=== PATIENT | male | born 1990 | race Caucasian/White ===

== ENCOUNTER 2016-08-27 21:11 | Emergency (ER) | payer MEDICAID, OTHER ==
[~2016-08-27] VITALS: Ht 180.3 cm; Wt 114.1 kg
[~2016-08-27 21:11] MED LIST: CYCL-36 PO; IBUP800 PO
[2016-08-27 21:35] VITALS: BP 121/89; PULSE 113; RESP 20; TEMP 102.4; O2SAT 98
[2016-08-27 22:45] VITALS: TEMP 101.2
[2016-08-27] MEDS ORDERED: IBUP-232 PO (22:49)
[2016-08-27] MEDS ORDERED: ACETAMINOPHEN 500 MG CPLT PO ONE (23:15)
[2016-08-27] MEDS ORDERED: CLINDAMYCIN INJ 900 MG in SODIUM CHLORIDE 0.9% INJ 100 ML IV ONE (23:15)
[2016-08-27] MEDS ORDERED: LIDOCAINE HCL 1% PF 30 ML VIAL INFIL ONE (23:15)
[2016-08-27] MEDS ORDERED: KETOROLAC TROMETHAMINE 30 MG/ML (IVP) VIAL IV PUSH ONE (23:15)
[2016-08-27 23:16] LABS: AUTOMATED NEUTROPHIL # 8.7 TH/MM3 (1.8-7.7); BASOPHIL % 0.2 % (0.0-2.0); EOSINOPHIL % 0.1 % (0.0-4.0); HEMATOCRIT 41.5 % (39.0-51.0); HEMO FLAGS DIFF FINAL; LYMPH % 15.1 % (9.0-44.0); LYMPHOCYTE # 1.8 TH/MM3 (1.0-4.8); MEAN CELL VOLUME 84.3 FL (80.0-100.0); MEAN CORPUSCULAR HEMOGLOBIN 29.2 PG (27.0-34.0); MEAN CORPUSCULAR HGB CONC 34.7 % (32.0-36.0); MONO % 9.9 % (0.0-8.0); NEUT % 74.7 % (16.0-70.0); PLATELET COUNT 288 TH/MM3 (150-450); RED BLOOD COUNT 4.92 MIL/MM3 (4.50-5.90); RED CELL DISTRIBUTION WIDTH 12.1 % (11.6-17.2); WHITE BLOOD COUNT 11.7 TH/MM3 (4.0-11.0)
[2016-08-27 23:23] LABS: POTASSIUM 3.6 MEQ/L (3.5-5.1)
--- NOTE | 2016-08-27 23:50 | PD ---
HPI Chief Complaint: Skin Problem Time Seen by Provider: 23:03 Travel History International Travel<30 days: No Contact w/Intl Traveler<30days: No Traveled to known affect area: No History of Present Illness HPI 26-year-old male presents to the emergency department for left knee redness and possible infection 3 weeks. Patient has been taking Tylenol and ibuprofen for symptom relief. Patient's had multiple similar lesions to the left lower extremity. Patient states that area to the anterior portion of his knee has been persistent and worsening but no ascending erythema and no groin lymphadenopathy. Patient has had fever. Patient is not diabetic. Patient denies any known trauma. Patient rates pain as moderate to severe. Pain is located at the site of redness to the anterior knee but denies any joint pain with range of motion. PFSH Past Medical History Narrative Medical Negative past history negative surgical history alcohol use nursing notes reviewed Medical History: Denies Significant Hx Diminished Hearing: No Immunizations Current: Yes Tetanus Vaccination: Unknown Influenza Vaccination: No Past Surgical History Surgical History: No Previous Surgery Social History Alcohol Use: Yes (VERY RARE) Tobacco Use: No Substance Use: No Allergies-Medications (Allergen,Severity, Reaction): Coded Allergies: Amoxil (Verified Allergy, Severe, n/v, 08/27/16) Reported Meds & Prescriptions Reported Meds & Active Scripts Active Clindamycin (Clindamycin HCl) 150 Mg Cap 300 Mg PO Q6H 7 Days Bactrim DS (Sulfamethoxazole-Trimethoprim) 800-160 Mg Tab 1 Tab PO BID Bactroban Topical (Mupirocin) 2 % Cream 1 Applic TOPICAL TID 7 Days Reported Ibuprofen 600 Mg Tab 600 Mg PO Q6H PRN Review of Systems Except as stated in HPI: all other systems reviewed are Neg General / Constitutional: No: Chills HENT: No: Congestion Cardiovascular: No: Chest Pain or Discomfort Respiratory: No: Shortness of Breath Gastrointestinal: No: Nausea, Vomiting, Abdominal Pain Genitourinary: No: Flank Pain Musculoskeletal: Positive: Pain, No: Myalgias, Limited ROM Skin: Positive Rash (anterior left knee), Positive Other, No Lumps Neurologic: No: Weakness Psychiatric: No: Anxiety Hematologic/Lymphatic: No: Easy Bruising Physical Exam Narrative GENERAL: Well-developed well-nourished male in no acute distress no respiratory distress. SKIN: Warm and dry. HEAD: Normocephalic. EYES: No scleral icterus. No injection or drainage. NECK: Supple, trachea midline. No JVD or lymphadenopathy. CARDIOVASCULAR: Regular rate and rhythm without murmurs, gallops, or rubs. RESPIRATORY: Breath sounds equal bilaterally. No accessory muscle use. GASTROINTESTINAL: Abdomen soft, non-tender, nondistended. MUSCULOSKELETAL: No cyanosis, or edema. Attention left lower extremity anterior lateral aspect of the left knee prepatellar area induration erythema increased warmth with central pustular lesion nonfluctuant with 3 smaller areas to the proximal lower leg in various stages of healing no ascending erythema no left groin lymphadenopathy distally dorsalis pedis pulses 2+ to palpation and range of motion in the not limited on exam although does complain of increased pain at site of erythema. No ballotable effusion. BACK: Nontender without obvious deformity. No CVA tenderness. Data Data Last Documented VS Vital Signs Date Time Temp Pulse Resp B/P Pulse Ox O2 Delivery O2 Flow Rate FiO2 08/28/16 01:25 98 20 143/76 99 08/27/16 22:45 101.2 Orders Basic Metabolic Panel (Bmp) (08/27/16 23:03) Complete Blood Count With Diff (08/27/16 23:03) Blood Culture (08/27/16 23:03) Wound Culture And Gram Stain (08/27/16 23:03) Iv Access Insert/Monitor (08/27/16 23:03) Clindamycin Inj (Cleocin Inj) (08/27/16 23:15) Lidocaine Pf 1% Inj (Xylocaine-Mpf 1% In (08/27/16 23:15) Acetaminophen (Tylenol) (08/27/16 23:15) Ketorolac Inj (Toradol Inj) (08/27/16 23:15) Knee, Ltd (1 Or 2vws) (08/27/16 ) Sulfamet-Trimeth Ds 800-160 Mg (Bactrim (08/28/16 01:00) Labs Laboratory Tests Test 08/27/16 23:08 White Blood Count 11.7 TH/MM3 Red Blood Count 4.92 MIL/MM3 Hemoglobin 14.4 GM/DL Hematocrit 41.5 % Mean Corpuscular Volume 84.3 FL Mean Corpuscular Hemoglobin 29.2 PG Mean Corpuscular Hemoglobin 34.7 % Concent Red Cell Distribution Width 12.1 % Platelet Count 288 TH/MM3 Mean Platelet Volume 7.9 FL Neutrophils (%) (Auto) 74.7 % Lymphocytes (%) (Auto) 15.1 % Monocytes (%) (Auto) 9.9 % Eosinophils (%) (Auto) 0.1 % Basophils (%) (Auto) 0.2 % Neutrophils # (Auto) 8.7 TH/MM3 Lymphocytes # (Auto) 1.8 TH/MM3 Monocytes # (Auto) 1.2 TH/MM3 Eosinophils # (Auto) 0.0 TH/MM3 Basophils # (Auto) 0.0 TH/MM3 CBC Comment DIFF FINAL Differential Comment Sodium Level 138 MEQ/L Potassium Level 3.6 MEQ/L Chloride Level 101 MEQ/L Carbon Dioxide Level 29.0 MEQ/L Anion Gap 8 MEQ/L Blood Urea Nitrogen 18 MG/DL Creatinine 1.40 MG/DL Estimat Glomerular Filtration 60 ML/MIN Rate Random Glucose 93 MG/DL Calcium Level 9.0 MG/DL MDM Medical Decision Making Medical Screen Exam Complete: Yes Emergency Medical Condition: Yes Medical Record Reviewed: Yes Interpretation(s) CBC & BMP Diagram 08/27/16 23:08 Differential Diagnosis Cellulitis, folliculitis, bursitis, abscess, retained foreign body; no joint pain with range of motion no crepitus low suspicion for septic arthritis no findings for necrotizing fasciitis Narrative Course IV access obtained specimens questions have resulting patient administered IV antibiotics Bedside ultrasound performed and using a linear probe no evidence for fluid collection for abscess; cobblestoning changes noted for cellulitis Lab values resulted patient aware plan is to admit for IV antibiotics patient has been on any antibiotic as an outpatient oral antibiotic has received first dose of IV antibiotic in the emergency department. Patient reports that he does not want to be admitted is aware that should he not do well on oral antibiotic she will have to return and stay for IV antibiotic but will not stay at this time for ongoing IV antibiotics. Risks and benefit discussed in detail however patient has not been on any antibiotic and other areas have resolved spontaneously will go ahead and allow patient a trial of outpatient oral antibiotic but is encouraged to recheck in 1 day and sooner if necessary to reassess status of cellulitis. Patient is aware area may develop into an abscess. At this time there is no evidence for necrotizing fasciitis or septic arthritis. Procedures Procedure Narrative Bedside ultrasound performed using linear probe and transverse and longitudinal planes cobblestoning of the soft tissue without area of fluid collection for abscess. Diagnosis Primary Impression: Cellulitis of knee, left Referrals: Primary Care Physician 1 day Patient Instructions: General Instructions Departure Forms: Tests/Procedures, Work Release Special Instructions: no work x 2 days Additional Instructions: elevate left leg complete antibiotic as prescribed apply topical antibiotic as prescribed recommend 1 day recheck in the ED no work x 2 days Take acetaminophen/Tylenol every 4 hours as needed for fever 100.4F or greater Take ibuprofen/Advil/Motrin every 6-8 hours as needed for fever 100.4F or greater or for pain associated inflammation Med/Other Pt SpecificInfo: Prescription(s) given Scripts Clindamycin 150 Mg Tor431 Mg PO Q6H 7 Days Ref 0 Prov:Cordelia Nina MD 08/28/16 Sulfamethoxazole-Trimethoprim (Bactrim DS)800-160 Mg Tab1 Tab PO BID #20 TAB Ref 0 Prov:Cordelia Nina MD 08/28/16 Mupirocin Topical (Bactroban Topical)2 % Cream1 Applic TOPICAL TID 7 Days Ref 0 Prov:Cordelia Nina MD 08/28/16 Disposition: 01 DISCHARGE HOME Condition: Stable Cordelia Nina MD Aug 27, 2016 23:50
--- NOTE | 2016-08-28 00:17 | RADHPO ---
EXAM DATE/TIME: 08/28/2016 00:04 [facility] COMPARISON: No previous studies available for comparison. INDICATIONS : Left knee redness and swelling around the patella region. MEDICAL HISTORY : None. SURGICAL HISTORY : None. ENCOUNTER: Initial ACUITY: 1 week PAIN SCORE: 7/10 LOCATION: Left knee FINDINGS: There is soft tissue swelling seen anterior to the patella and suprapatellar region. There is no effu austyn, fracture or dislocation. CONCLUSION: Prepatellar and suprapatellar soft tissue swelling noted. Keaton Brian MD on August 28, 2016 at 0:15 Board Certified Radiologist. This report was verified electronically.
[2016-08-28] MEDS ORDERED: SULFAMETHOXAZOLE-TRIMETHOPRIM DS 800-160 MG TAB PO ONE (01:00)
[2016-08-28] MEDS ORDERED: BACT800T5 PO (01:03)
[2016-08-28] MEDS ORDERED: MUPI2%T TOPICAL (01:03)
[2016-08-28] MEDS ORDERED: CLIN1CAP5 PO (01:03)
[2016-08-28 01:25] VITALS: BP 143/76
== END 2016-08-28 01:34 | disposition home or self-care (01) ==
LOC: PHED 21:11
DX: L03.116 Cellulitis of left lower limb (principal); B95.62 Methicillin resistant Staphylococcus aureus infection as the cause of diseases classified elsewhere
CPT/HCPCS: 73560; 80048; 85025; 86403; 87040; 87070; 87186; 96365; 96375; 99284; J1885; 87205